=== PATIENT | male | born 1935 | race Caucasian/White ===

== ENCOUNTER 2025-03-08 13:07 | Emergency (ER) | payer OTHER, MEDICAID ==
[~2025-03-08] VITALS: Ht 167.6 cm; Wt 59.0 kg
[2025-03-08 13:11] VITALS: O2SAT 98
[2025-03-08] MEDS: SODIUM CHLORIDE 0.9% 1,000 ML IV ONE (14:02)
[2025-03-08 14:45] LABS: HEMATOCRIT. 33.4 % (42.0-52.0); HEMOGLOBIN. 11.1 g/dL (14.0-18.0); MEAN CORPUSCULAR HEMOGLOBIN 30.8 pg (28.0-32.0); MEAN CORPUSCULAR HGB CONC 33.1 g/dL (31.0-37.0); MEAN CORPUSCULAR VOLUME 93.2 fL (80.0-94.0); MEAN PLATELET VOLUME 9.5 fl (7.4-10.4); PLATELET 201 x1000/uL (130-400); RED BLOOD CELL COUNT 3.59 mill/uL (4.7-6.1); RED CELL DISTRIBUTION WIDTH 14.4 % (11.6-14.6); WHITE BLOOD COUNT 12.9 x1000/uL (4.5-11.0)
[2025-03-08 14:54] LABS: CHLORIDE 109 mEq/L (98-107); POTASSIUM 3.9 mEq/L (3.5-5.1); SODIUM 144 mEq/L (136-145)
[2025-03-08 14:55] LABS: CARBON DIOXIDE 25 mEq/L (21-32); INR 1.3; PROTHROMBIN TIME 13.9 sec (9.6-11.0)
[2025-03-08 14:56] LABS: CALCIUM 8.8 mg/dL (8.7-10.4)
[2025-03-08 15:00] LABS: CREATININE 2.2 mg/dL (0.6-1.3); GLUCOSE 215 mg/dL (70-105); UREA NITROGEN BLOOD 74 mg/dL (9-23)
[2025-03-08 15:02] LABS: TROPONIN I HIGH SENSITIVITY 41 ng/L (3.0-53)
[2025-03-08 15:10] LABS: DIFFERENTIAL COMMENT 1
[2025-03-08 15:53] LABS: GIANT PLATELETS FEW; PLATELET ESTIMATE NORMAL
[2025-03-08] MEDS ORDERED: SODIUM CHLORIDE 0.9% 1,000 ML IV NR (16:30)
[2025-03-08 17:24] LABS: TROPONIN I HIGH SENSITIVITY 40 ng/L (3.0-53)
[2025-03-08] MEDS: CEFTRIAXONE 1GM/50ML 50 ML IV NR (17:59)
[2025-03-08] MEDS: DOXYCYCLINE 100MG/100ML 100 ML IV NR (18:32)
[2025-03-08 19:11] VITALS: BP 129/84; PULSE 71; RESP 15; TEMP 36.8; O2SAT 100
== END 2025-03-08 19:13 | disposition short-term general hospital (02) ==
LOC: ER 13:07 → CANBEDREQ 18:01 → ER 19:13
DX: R55 Syncope and collapse (principal); E11.22 Type 2 diabetes mellitus with diabetic chronic kidney disease; E11.65 Type 2 diabetes mellitus with hyperglycemia; F03.90 Unspecified dementia, unspecified severity, without behavioral disturbance, psychotic disturbance, mood disturbance, and anxiety; N18.9 Chronic kidney disease, unspecified; Z79.899 Other long term (current) drug therapy
CPT/HCPCS: 99285; 96365; 70450; 71045; 96367; 96361; 80048; 83880; 85025; 85610; 87040; 84484; 36415; 93005; J0696; J3490; J7030

== ENCOUNTER 2025-04-22 01:29 | Inpatient (IN) | payer OTHER, MEDICARE ==
[2025-04-22] VITALS (8 sets, daily range): BP systolic 109–137; BP diastolic 47–77; PULSE 72–81; RESP 12–19; TEMP 36.7–36.9; O2SAT 96–100
[~2025-04-22] VITALS: Ht 175.3 cm; Wt 56.2 kg
[2025-04-22 02:21] LABS: BASOPHILS % 0.1 % (0.0-2.0); EOSINOPHILS % 0.2 % (0.0-5.0); HEMATOCRIT. 30.5 % (42.0-52.0); HEMOGLOBIN. 10.2 g/dL (14.0-18.0); LYMPHOCYTES % 7.7 % (20.0-50.0); MEAN CORPUSCULAR HEMOGLOBIN 31.2 pg (28.0-32.0); MEAN CORPUSCULAR HGB CONC 33.5 g/dL (31.0-37.0); MEAN CORPUSCULAR VOLUME 93.3 fL (80.0-94.0); MEAN PLATELET VOLUME 8.7 fl (7.4-10.4); MONOCYTES % 10.2 % (2.0-8.0); NEUTROPHILS % 81.8 % (40.0-76.0); PLATELET 205 x1000/uL (130-400); RED BLOOD CELL COUNT 3.27 mill/uL (4.7-6.1); RED CELL DISTRIBUTION WIDTH 16.1 % (11.6-14.6); WHITE BLOOD COUNT 8.2 x1000/uL (4.5-11.0)
[2025-04-22 02:29] LABS: CHLORIDE 103 mEq/L (98-107); POTASSIUM 3.9 mEq/L (3.5-5.1); SODIUM 137 mEq/L (136-145)
[2025-04-22 02:30] LABS: CARBON DIOXIDE 25 mEq/L (21-32)
[2025-04-22] MEDS: DEXTROSE 5% WATER 1,000 ML IV ONE (02:33)
[2025-04-22 02:35] LABS: CREATININE 1.2 mg/dL (0.6-1.3)
[2025-04-22 02:36] LABS: TROPONIN I HIGH SENSITIVITY 15 ng/L (3.0-53); UREA NITROGEN BLOOD 24 mg/dL (9-23)
[2025-04-22 02:37] LABS: GLUCOSE 52 mg/dL (70-105)
[2025-04-22] MEDS: DEXTROSE 50% WATER 50ML SYRINGE IV ONE ×2 (02:57→09:11)
[2025-04-22 03:01] LABS: INR 1.1; PROTHROMBIN TIME 11.7 sec (9.6-11.0)
[2025-04-22] MEDS ORDERED: DEXT 10% WATER 1,000 ML IV ONE (05:00)
[2025-04-22] MEDS: DEXTROSE 10% WATER 1,000 ML IV ONE (05:14)
[2025-04-22 05:52] LABS: CLARITY URINE CLEAR (CLEAR); COLOR URINE YELLOW (YELLOW); GLUCOSE URINE NEGATIVE (NEGATIVE); KETONES URINE NEGATIVE (NEGATIVE); LEUKOCYTE ESTERASE URINE 3+ (NEGATIVE); NITRITE URINE NEGATIVE (NEGATIVE); OCCULT BLOOD URINE NEGATIVE (NEGATIVE); PH URINE 5.5 (4.5-8.0); PROTEIN URINE NEGATIVE (NEGATIVE); SPECIFIC GRAVITY URINE 1.006 (1.005-1.030); UROBILINOGEN URINE 0.2 E.U./dL (0.2-1.0)
[2025-04-22 06:27] LABS: RBC URINE 0-2 /hpf (0-2); SQUAMOUS EPITHELIAL CELL URINE NONE SEEN /lpf (RARE/1+)
[2025-04-22 06:33] LABS: BACTERIA URINE TRACE
[2025-04-22] MEDS ORDERED: DOCUSATE SODIUM 100MG CAPSULE PO PRN (10:30)
[2025-04-22] MEDS ORDERED: DEXTROSE 50% WATER 50ML SYRINGE IV PRN (10:30)
[2025-04-22] MEDS ORDERED: IPRATROPIUM/ALBUTEROL 0.5-3(2.5)MG/3ML NEB HHN PRN (10:30)
[2025-04-22] MEDS ORDERED: ACETAMINOPHEN 325MG TABLET PO PRN ×2 (10:30)
[2025-04-22] MEDS ORDERED: CLONIDINE 0.1MG TABLET PO PRN (10:30)
[2025-04-22] MEDS ORDERED: ONDANSETRON HCL 4MG/2ML INJ IV PRN (10:30)
[2025-04-22] MEDS: BLOOD SUGAR DIAGNOSTIC STRIP TEST SCH (12:30)
[2025-04-22] MEDS: INSULIN LISPRO 100 UNITS/ML SUBCUT SCH (13:00)
[2025-04-22 13:25] LABS: AMMONIA 23 uMol/L (<32)
[2025-04-22 13:28] LABS: THYROID STIMULATING HORMONE 1.31 uIU/mL (0.55-4.78)
[2025-04-22] MEDS: CEFTRIAXONE 1GM/50ML 50 ML IV SCH (14:19)
[2025-04-22 20:41] LABS: VITAMIN B12 SERUM 457 pg/mL (211-911)
[2025-04-22 20:43] LABS: FOLIC ACID (FOLATE) SERUM 10.26 ng/mL (>5.38)
== END 2025-04-22 20:00 | disposition short-term general hospital (02) | DRG 637 ==
LOC: ER 01:29 → 5EST 05:14 → EDBEDREQSVC 06:50 → EDBEDREQ 06:51 → ENRESERV 06:54
PROVIDERS: ADMIT Internal Medicine; ATTEND Internal Medicine
DX: E11.649 Type 2 diabetes mellitus with hypoglycemia without coma (principal); G93.41 Metabolic encephalopathy; N39.0 Urinary tract infection, site not specified; I10 Essential (primary) hypertension; N17.9 Acute kidney failure, unspecified; F03.90 Unspecified dementia, unspecified severity, without behavioral disturbance, psychotic disturbance, mood disturbance, and anxiety; D72.821 Monocytosis (symptomatic); D64.9 Anemia, unspecified
CPT/HCPCS: 36415; 71045; 80048; 80061; 81003; 82140; 82607; 82746; 82962; 83036; 83605; 84145; 84443; 84484; 85025; 93005; 99291; J0696; J7070

== ENCOUNTER 2025-05-09 17:31 | Emergency (ER) | payer OTHER ==
[~2025-05-09] VITALS: Ht 167.6 cm; Wt 70.0 kg
[2025-05-09 17:53] VITALS: O2SAT 97
[2025-05-09] MEDS ORDERED: FLUC200T51 PO (18:02)
[2025-05-09] MEDS ORDERED: TIMO5DRO (18:02)
[2025-05-09] MEDS ORDERED: LISI40TA13 PO (18:03)
[2025-05-09] MEDS ORDERED: PANT40TA51 PO (18:03)
[2025-05-09] MEDS ORDERED: TAMS-54 MT (18:04)
[2025-05-09] MEDS ORDERED: ATOR-2 PO (18:04)
[2025-05-09 18:10] VITALS: TEMP 36.9
[2025-05-09] MEDS ORDERED: BACITRACIN ZINC OINT UDPKT TOP NR (18:30)
[2025-05-09] MEDS ORDERED: LIDOCAINE HCL/PF 1% 10 MG/ML 5ML VIAL INFIL NR (18:30)
[2025-05-09] MEDS ORDERED: BACITRACIN ZINC OINT UDPKT TOP ONE (18:30)
[2025-05-09] MEDS ORDERED: TETANUS, DIPHTHERIA, PERTUSSIS VAC/PF 0.5ML (>10YR OLD) IM ONE ×2 (18:30→22:00)
[2025-05-09] MEDS ORDERED: LIDOCAINE HCL/PF 1% 10 MG/ML 5ML VIAL INFIL ONE (18:30)
[2025-05-09 20:20] LABS: BASOPHILS % 0.2 % (0.0-2.0); EOSINOPHILS % 3.1 % (0.0-5.0); HEMATOCRIT. 28.7 % (42.0-52.0); HEMOGLOBIN. 9.7 g/dL (14.0-18.0); LYMPHOCYTES % 19.9 % (20.0-50.0); MEAN CORPUSCULAR HGB CONC 33.9 g/dL (31.0-37.0); MEAN CORPUSCULAR VOLUME 94.6 fL (80.0-94.0); MEAN PLATELET VOLUME 9.2 fl (7.4-10.4); MONOCYTES % 13.7 % (2.0-8.0); NEUTROPHILS % 63.1 % (40.0-76.0); PLATELET 181 x1000/uL (130-400); RED BLOOD CELL COUNT 3.03 mill/uL (4.7-6.1); RED CELL DISTRIBUTION WIDTH 15.9 % (11.6-14.6)
[2025-05-09 20:31] LABS: INR 1.1; PROTHROMBIN TIME 11.7 sec (9.6-11.0)
[2025-05-09 20:32] LABS: CHLORIDE 105 mEq/L (98-107); SODIUM 139 mEq/L (136-145)
[2025-05-09 20:33] LABS: CALCIUM 9.2 mg/dL (8.7-10.4); CARBON DIOXIDE 25 mEq/L (21-32)
[2025-05-09 20:38] LABS: CREATININE 1.3 mg/dL (0.6-1.3); GLUCOSE 200 mg/dL (70-105); TROPONIN I HIGH SENSITIVITY 11 ng/L (3.0-53); UREA NITROGEN BLOOD 24 mg/dL (9-23)
[2025-05-09 20:40] LABS: CREATINE KINASE 80 IU/L (46-171)
[2025-05-09] MEDS: SODIUM CHLORIDE 0.9% 1,000 ML IV ONE (23:06)
[2025-05-09] MEDS: TETANUS, DIPHTHERIA, PERTUSSIS VAC/PF 0.5ML (>10YR OLD) IM ONE (23:22)
[2025-05-10 01:10] VITALS: BP 91/75; PULSE 67; RESP 11; O2SAT 98
== END 2025-05-10 01:10 | disposition home or self-care (01) ==
LOC: ER 17:31
DX: S01.81XA Laceration without foreign body of other part of head, initial encounter (principal); S63.502A Unspecified sprain of left wrist, initial encounter; G30.9 Alzheimer's disease, unspecified; F02.80 Dementia in other diseases classified elsewhere, unspecified severity, without behavioral disturbance, psychotic disturbance, mood disturbance, and anxiety; E78.00 Pure hypercholesterolemia, unspecified; E11.22 Type 2 diabetes mellitus with diabetic chronic kidney disease; H44.522 Atrophy of globe, left eye; I67.82 Cerebral ischemia; Z87.440 Personal history of urinary (tract) infections; W19.XXXA Unspecified fall, initial encounter; Y93.89 Activity, other specified; Y92.89 Other specified places as the place of occurrence of the external cause; Y99.8 Other external cause status
CPT/HCPCS: 99285; 70450; 96360; 80048; 82550; 85025; 85610; 86850; 86900; 86901; 84484; 36415; 73502; 73030; 73070; 73100; 70486; 90715; 90471; J2003; J7030; A4606

== ENCOUNTER 2025-05-27 13:34 | Emergency (ER) | payer OTHER, MEDICAID ==
[~2025-05-27] VITALS: Ht 172.7 cm; Wt 64.0 kg
[~2025-05-27 13:34] MED LIST: ATOR-2 PO; FLUC200T51 PO; LISI40TA13 PO; PANT40TA51 PO; TAMS-54 MT; TIMO5DRO
[2025-05-27 13:36] VITALS: O2SAT 98
[2025-05-27] MEDS: SODIUM CHLORIDE 0.9% (SEPSIS BOLUS) IV ONE (14:16)
[2025-05-27] MEDS: CEFTRIAXONE 2GM/50ML 50 ML IV ONE (14:25)
[2025-05-27 14:41] LABS: BASOPHILS % 0.5 % (0.0-2.0); EOSINOPHILS % 6.2 % (0.0-5.0); HEMATOCRIT. 29.0 % (42.0-52.0); HEMOGLOBIN. 9.9 g/dL (14.0-18.0); LYMPHOCYTES % 23.1 % (20.0-50.0); MEAN PLATELET VOLUME 8.6 fl (7.4-10.4); MONOCYTES % 11.2 % (2.0-8.0); NEUTROPHILS % 59.0 % (40.0-76.0); PLATELET 210 x1000/uL (130-400); RED BLOOD CELL COUNT 3.13 mill/uL (4.7-6.1); RED CELL DISTRIBUTION WIDTH 14.5 % (11.6-14.6)
[2025-05-27 14:54] LABS: INR 1.1
[2025-05-27 15:00] LABS: CREATININE 1.1 mg/dL (0.6-1.3)
[2025-05-27 15:01] LABS: TROPONIN I HIGH SENSITIVITY 11 ng/L (3.0-53); UREA NITROGEN BLOOD 25 mg/dL (9-23)
[2025-05-27 15:02] LABS: ASPARTATE AMINOTRANSFERASE 16 IU/L (<34)
[2025-05-27 15:03] LABS: BILIRUBIN DIRECT 0.2 mg/dL (<=3.0); BILIRUBIN TOTAL 0.5 mg/dL (0.1-1.0); PROTEIN TOTAL 6.4 g/dL (6.0-8.3)
[2025-05-27] MEDS: MEROPENEM 1,000 MG in SODIUM CHLORIDE 0.9% 100 ML IV SCH (21:37)
[2025-05-27 22:15] VITALS: PULSE 78; RESP 15; TEMP 36.4; O2SAT 94
[2025-05-27 22:52] VITALS: BP 132/58; TEMP 97.88
== END 2025-05-27 22:59 | disposition short-term general hospital (02) ==
LOC: ER 13:34 → EDBEDREQ 19:22 → EDBEDREQTM 19:22 → ER 22:59
DX: R41.82 Altered mental status, unspecified (principal); E11.9 Type 2 diabetes mellitus without complications; E78.00 Pure hypercholesterolemia, unspecified; G30.9 Alzheimer's disease, unspecified; R06.02 Shortness of breath; F02.80 Dementia in other diseases classified elsewhere, unspecified severity, without behavioral disturbance, psychotic disturbance, mood disturbance, and anxiety; Z88.0 Allergy status to penicillin; Z88.6 Allergy status to analgesic agent; Z79.899 Other long term (current) drug therapy
CPT/HCPCS: 99291; 96365; 70450; 96361; 96367; 80076; 80048; 83880; 83605; 83690; 85025; 85610; 87040; 84484; 36415; 84145; 71045; 93005; J0696; J2185; J7050; J7030; A4606